=== PATIENT | male | born 1935 | race Caucasian/White ===

== ENCOUNTER 2018-07-02 15:39 | Observation (INO) | payer MEDICARE ==
[2018-07-02] MEDS ORDERED: NS 0.9% 1000 ML* 1,000 ML IV ONE (16:02)
[2018-07-02] MEDS ORDERED: Iodixanol* (CONTRAST) 320 MG/ML 100 ML SDV IV ONE (16:17)
[2018-07-02 16:21] LABS: ABS Basophils 0.1 10^3/ul (0-0.2); ABS Eosinophils 0.1 10^3/ul (0-0.6); ABS Lymphocytes 1.5 10^3/ul (1.0-4.8); ABS Monocytes 0.7 10^3/ul (0-0.8); ABS Neutrophils 4.7 10^3/ul (1.5-7.7); ABS Nucleated RBC 0 10^3/ul; Eosinophil % 1.7 %; Hematocrit 37 % (42-52); Hemoglobin 12.5 g/dl (14.0-18.0); Lymphocyte % 21.5 %; Mean Corpuscular HGB Conc 34 g/dl (31-36); Mean Corpuscular Hemoglobin 32 pg (27-31); Mean Corpuscular Volume 93 fL (80-94); Mean Platelet Volume 7.4 fL (7.4-10.4); Nucleated Red Blood Cells % 0; Platelet Count 168 10^3/ul (150-450); Red Blood Count 3.94 10^6/ul (4.00-5.40); Red Cell Distribution Width 13 % (10.5-15); White Blood Count 7.1 10^3/ul (3.5-10.8)
--- NOTE | 2018-07-02 16:21 | ED ---
Neurological HPI - HPI Summary HPI Summary: Time seen by provider: 15:58. The patient is an 83 y/o M arriving by ambulance to [facility] with a chief complaint of sudden onset difficulty with ambulation and weakness starting today at 12:00. He was getting out of the car to go to a basketball game when he began to feel the weakness with a limping gait. He states that he then sat down in the arena and felt alright, but when he was unable to stand up to leave. He denies LOC, numbness/tingling, dizziness/room spinning, nausea, vomiting, and CP. He is not currently in pain, but in the ED, he is still unable to ambulate normally. He notes that he only ate breakfast this morning. He does not have hx of HTN, strokes, or diabetes. - History of Current Complaint Stated Complaint: NEAR SYNCOPE Time Seen by Provider: 07/02/18 15:47 Hx Obtained From: Patient Onset/Duration: Sudden Onset, Still Present Timing: Sudden Onset Onset Severity: Mild Current Severity: Moderate Seizure Severity: Moderate Neurological Deficit Location: Generalized Pain Intensity: 0 Pain Scale Used: 0-10 Numeric Character: Weak Aggravating: Nothing Alleviating: Nothing Associated Signs and Symptoms: Positive: Unsteady Gait, Weakness. Negative: Loss of Consciousness, Dizziness, Pain, Numbness, Nausea/Vomiting, Chest Pain - Allergy/Home Medications Allergies/Adverse Reactions: Allergies Allergy/AdvReac Type Severity Reaction Status Date / Time No Known Drug Allergies Allergy See Comment Verified 07/02/18 16:58 Home Medications: Home Medications Aspirin EC TAB* [Ecotrin EC Low Dose 81 MG*] 81 mg PO DAILY 07/02/18 [History Confirmed 07/02/18] Cholecalciferol (Vitamin D3) [Vitamin D-3] 4,000 unit PO DAILY 07/02/18 [ History Confirmed 07/02/18] Ferrous Sulfate [Iron High-Potency] 325 mg PO DAILY 07/02/18 [History Confirmed 07/02/18] PMH/Surg Hx/FS Hx/Imm Hx Endocrine/Hematology History: Denies: Hx Diabetes Cardiovascular History: Denies: Hx Hypertension Opthamlomology History: Reports: Hx Contacts or Glasses Denies: Hx Legally Blind EENT History: Denies: Hx Deafness - Surgical History Surgery Procedure, Year, and Place: none Infectious Disease History: No Infectious Disease History: Denies: Traveled Outside the [place] in Last 30 Days - Family History Known Family History: Negative: Diabetes - Social History Occupation: Retired Alcohol Use: Occasionally Hx Substance Use: No Substance Use Type: Reports: None Do You Chew or Dip Tobacco: No Review of Systems Negative: Fever, Chills Negative: Erythema Negative: Sore Throat Negative: Chest Pain Negative: Shortness Of Breath, Cough Negative: Abdominal Pain, Vomiting, Nausea Negative: dysuria, hematuria Negative: Myalgia, Edema Negative: Rash Neurological: Other - POSITIVE: difficulty walking; NEGATIVE: dizziness Negative: Numbness - or tingling All Other Systems Reviewed And Are Negative: Yes Physical Exam - Summary Physical Exam Summary: Constitutional: Well-developed, Well-nourished, Alert. (-) Distressed Skin: Warm, Dry HENT: Normocephalic; Atraumatic Eyes: Conjunctiva normal Neck: Musculoskeletal ROM normal neck. (-) JVD, (-) Stridor, (-) Tracheal deviation Cardio: Rhythm regular, rate normal, Heart sounds normal; Intact distal pulses; The pedal pulses are 2+ and symmetric. Radial pulses are 2+ and symmetric. (-) Murmur Pulmonary/Chest wall: Effort normal. (-) Respiratory distress, (-) Wheezes, (-) Rales Abd: Soft, (-) epigastric tenderness, (-) Distension, (-) Guarding, (-) Rebound Musculoskeletal: (-) Edema Lymph: (-) Cervical adenopathy Neuro: Alert, Oriented x3, Romberg test positive, Finger to nose and dowd to heal negative, GCS: 15 Psych: Mood and affect Normal Triage Information Reviewed: Yes Vital Signs On Initial Exam: Initial Vitals Temp Pulse Resp BP Pulse Ox 99.0 F 84 16 181/88 99 07/02/18 15:59 07/02/18 15:59 07/02/18 15:59 07/02/18 15:59 07/02/18 15:59 Vital Signs Reviewed: Yes - Rupesh Coma Scale Best Eye Response: 4 - Spontaneous Best Motor Response: 6 - Obeys Commands Best Verbal Response: 5 - Oriented Coma Scale Total: 15 Diagnostics - Vital Signs Vital Signs Temp Pulse Resp BP Pulse Ox 07/02/18 15:59 99.0 F 84 16 181/88 99 - Laboratory Result Diagrams: 07/02/18 16:00 07/02/18 16:00 Lab Statement: Any lab studies that have been ordered have been reviewed, and results considered in the medical decision making process. - Radiology CXR Radiology Interpretation Completed By: Radiologist Summary of Radiographic Findings: No radiographic evidence for acute cardiopulmonary abnormality on this. portable chest x-ray. ED physician has reviewed this report. - CT Brain CT CT Interpretation Completed By: Radiologist Summary of CT Findings: 1. No acute intracranial hemorrhage. 2. There is symmetrical enlargement of the bilateral lateral ventricles and third ventricle of unknown chronicity without prior head CTs for comparison. Please correlate to any signs or symptoms of hydrocephalus. ED physician has reviewed this report. Head CTA CT Interpretation Completed By: Radiologist Summary of CT Findings: 1. There is no abrupt filling defect or other acute abnormality of the large named arteries of the neck or head. 2. Mixed attenuation atherosclerosis is seen at the bilateral carotid bulbs causing approximately 57% degree stenosis on the right according to nascet criteria. 3. Nonspecific straightening of the normal cervical lordosis and multilevel degenerative disc disease of the cervical spine. 4. Incidentally noted is round glass density in the bilateral lung apices. ED physician has reviewed this report. NIH Scale - NIH Scale Level of Consciousness: Alert/Keenly Responsive Ask Patient the Month and His/Her Age: Both Correct Ask Pt to Open/Close Eyes and Watch Commander/Release Non-Paretic Hand: Both Correctly Best Gaze (Only Horizontal Eye Movement): Normal Visual Field Testing: No Visual Loss Facial Paresis-Pt to Smile & Close Eyes or Grimace Symmetry: Normal/Symmetrical Motor Function - Right Arm: No Drift-Holds 10 Seconds Motor Function - Left Arm: No Drift-Holds 10 Seconds Motor Function - Right Leg: No Drift-Holds 10 Seconds Motor Function - Left Leg: No Drift-Holds 10 Seconds Limb Ataxia-Must be out of Proportion to Weakness Present: Absent Sensory (Use Pinprick to Test Arms/Legs/Trunk/Face): Normal Best Language (Describe Picture, Name Items): No Aphasia Dysarthria (Read Several Words): Normal Extinction and Inattention: No Abnormality Total Score: 0 Re-Evaluation - Re-Evaluation First Eval Re-Evaluation Time: 19:00 Change: Improved Comment: The patient's ability to bear weight has improved. He is able to support his weight. Course/Dx - Course Course Of Treatment: Time seen by provider: 15:58. The patient is an 83 y/o M arriving by ambulance to [facility] with a chief complaint of sudden onset difficulty with ambulation and weakness starting today at 12:00. He was getting out of the car to go to a basketball game when he began to feel the weakness with a limping gait. He states that he then sat down in the arena and felt alright, but when he was unable to stand up to leave. He denies LOC, numbness/ tingling, dizziness/room spinning, nausea, vomiting, and CP. He is not currently in pain, but in the ED, he is still unable to ambulate normally. He notes that he only ate breakfast this morning. No hx of HTN, strokes, or diabetes. Upon physical exam, the patient has negative finger to nose and dowd to heal, and positive Romberg, GCS: 15, NIH: 0. In the ED course, Coco Melo was called at 16:03. The patient was administered Iodixanol (for CT) and Ns. Blood work and UA are unremarkable. EKG and CXR are negative. Brain CT reveals enlargement of bilateral lateral ventricles. Head CTA reveals atherosclerosis in the bilateral carotid bulbs and degenerative disc disease. I consulted with Dr. Tolentino, neurology, who will come to the ED to visit the patient at 16:00. I consulted with Dr. Cain, who accepts the patient for admission at 18:00. The patient is diagnosed with unsteady gait. He agrees with and understands the need for admission. - Diagnoses Provider Diagnoses: Gait instability During the Visit The Following Alert/Code Occurred: Coco Garner - called at 16:03 - Physician Notifications Discussed Care Of Patient With: Shon Tolentino - neurology Time Discussed With Above Provider: 16:00 Instructed by Provider To: Other - I consulted with Dr. Tolentino, who will come see the patient in the ED. I also consulted Dr. Cain, who accepts the patient for admission at 18:00. Discharge - Sign-Out/Discharge Documenting (check all that apply): Patient Departure - Patient will be admitted to [facility] for further care by Dr. Tolentino. - Discharge Plan Condition: Stable Disposition: ADMITTED TO [facility] Referrals: No Primary Care Phys,NOPCP [Primary Care Provider] - - Billing Disposition and Condition Condition: STABLE Disposition: Admitted to [facility] - Attestation Statements Document Initiated by Aletaibniru: Yes Documenting Scribe: Rebecca Perales Provider For Whom Matty is Documenting (Include Credential): Dr. Frank Lr MD Scribe Attestation: I, Rebecca Perales, scribed for Dr. Frank Lr MD on 07/02/18 at 1901. Scribe Documentation Reviewed: Yes Provider Attestation: The documentation as recorded by the Rebecca rascon accurately reflects the service I personally performed and the decisions made by me, Dr. Frank Lr MD Status of Scribe Document: Viewed
[2018-07-02 16:37] LABS: Albumin 4.1 g/dL (3.2-5.2); Albumin/Globulin Ratio 1.4 (1-3); BUN/Creatinine Ratio 20.4 (8-20); Calcium 9.4 mg/dL (8.6-10.3); EGFR Non-African American 72.9 (>60); Globulin 2.9 g/dL (2-4); HDL Cholesterol 46.2 mg/dL; Magnesium 1.8 mg/dL (1.9-2.7); Potassium 3.3 mmol/L (3.5-5.0); Total Bilirubin 0.6 mg/dL (0.2-1.0)
[2018-07-02 16:39] LABS: Activated Partial Thrombo Time 24.3 seconds (26.0-36.3); INR 0.95 (0.77-1.02)
[2018-07-02 16:59] LABS: TSH (Thyroid Stimulating Horm) 2.76 mcIU/mL (0.34-5.60)
[2018-07-02 17:11] LABS: Urine Appearance Clear; Urine Bilirubin Negative (Negative); Urine Blood Negative (Negative); Urine Color Yellow; Urine Glucose Negative (Negative); Urine Ketones Trace (Negative); Urine Nitrite Negative (Negative); Urine Protein Negative (Negative); Urine Specific Gravity 1.013 (1.010-1.030); Urine Urobilinogen Negative (Negative)
[2018-07-02] MEDS ORDERED: Acetaminophen TAB* 325 MG PO PRN (17:14)
[2018-07-02 17:19] LABS: C Reactive Protein 3.96 mg/L (<8.01)
[2018-07-02 18:04] LABS: Erythrocyte Sed Rate 30 mm/Hr (0-40)
--- NOTE | 2018-07-02 19:38 | HP ---
CC: Dr. Ho* [facility] MEDICINE HISTORY AND PHYSICAL: DATE OF ADMISSION: 07/02/18. PRIMARY CARE PHYSICIAN: Dr. Ho in [place], [place]. ATTENDING PHYSICIAN: Dr. Lita Cain* (dictation provided by Cleo Johnson NP) . CHIEF COMPLAINT: Gait instability. HISTORY OF PRESENT ILLNESS: Mr. Reid is an 83-year-old male with no known past medical history, who presents today to the hospital after developing the sudden onset of gait instability at 11:30 today. Mr. Reid states he was in his normal state of health. He resides in [place], but was here in [place] to attend a [employer] basketball game. The patient was in the gym walking, when he suddenly developed a gait instability. He describes feeling that his legs were unreliable. He denies any dizziness or lightheadedness. He denies any pain in the back or legs. Because of this, he ended up sitting down on the ground and was unable to manage to get up, and therefore EMS was called and he was brought to the emergency room here. He denies any recent illnesses. He has had no fever, chills, chest pain, shortness of breath, nausea, vomiting, diarrhea or abdominal pain. In the emergency room, Mr. Reid had a CT, which showed no acute abnormality of his brain. He also had a head and neck CTA, which showed no acute abnormality. His labs were unremarkable. The patient was seen in consultation by Dr. Tolentino from the neurology team. He notes that the patient had a normal neurological exam except for the fact that when he stood up, he was very unsteady on his feet and leaning into the wall and falling backwards. PAST MEDICAL HISTORY: History of blood clot 30 years ago. MEDICATIONS: The patient states he takes no prescription medications, but does take: 1. Ferrous sulfate 325 mg p.o. daily. 2. Cholecalciferol 4000 units p.o. daily. 3. Aspirin 81 mg p.o. daily. ALLERGIES: No known drug allergies. FAMILY HISTORY: The patient reports his father lived to [facility]. His mother had heart problems and what he describes as angina. SOCIAL HISTORY: No report of alcohol, tobacco or drug use. The patient lives with his in [place] and she will be his healthcare proxy. REVIEW OF SYSTEMS: A 14-point review of systems was completed with Mr. Reid and all those not mentioned above were negative. PHYSICAL EXAMINATION GENERAL: Mr. Reid is sitting up in the bed. He is in no acute distress. VITAL SIGNS: Temperature 99.0, pulse rate 84, respiratory rate 16, O2 saturation 99% on room air, blood pressure 181/88. LUNGS: Clear to auscultation bilaterally with no accessory muscle use and good aeration. HEART: S1, S2. No murmur, rub or gallop and regular. ABDOMEN: Soft, nontender. Bowel sounds positive x4. EXTREMITIES: No cyanosis or edema. SKIN: Intact. NEUROLOGIC: He is alert and oriented x3. He moves all extremities equally. There is no facial asymmetry or focal weakness. Extraocular movements are intact. The patient was ambulated in the ED again by myself. He is demonstrating a short cautious gait, but was not unsteady on his feet. He was able to walk 40 feet in the ED safely with standby assist. He feels that his gait has improved. DIAGNOSTIC STUDIES/LAB DATA: WBC 7.1, hemoglobin 12.5, hematocrit 37, platelet count 168,000. INR 0.95. Sodium 138, potassium 3.3, chloride 104, serum bicarbonate 26, BUN 20, creatinine 0.98, glucose 134 and lactic acid 2.0. Troponin 0.00. Urine is uncollected. The CT brain shows "no acute intracranial hemorrhage. There is symmetrical enlargement of the bilateral ventricles and lateral ventricles, and 3rd ventricle of unknown chronicity without prior head CTs for comparison." The head and neck CTA is as follows: "There is no abrupt filling defect or other acute abnormality of the large main arteries of the neck or head. Mixed attenuation atherosclerosis is seen at the bilateral carotid bulbs causing approximately 57 degrees stenosis in the right according to NASCET criteria. Nonspecific straightening of the normal cervical lordosis and multilevel degenerative disk disease of the cervical spine. Incidentally noted is ground- glass density in the bilateral lung apices." ASSESSMENT AND PLAN: Mr. Reid is an 83-year-old male with no known past medical history other than a pulmonary embolism 30 year ago, who presents today to the hospital with concern for sudden onset of gait instability. Our plans are for observation in the hospital for the followin. Gait instability. Our number one concern is for a cerebrovascular accident at this point or transient ischemic attack. MRIs have been ordered. There is also concern perhaps this is a cervical or a spine-related phenomenon, and therefore, MRIs of the thoracic, lumbar and cervical spine have also been ordered. The patient also has workup including an MONE, CRP, and ESR. Further plan is to continue to reassess through the night, and if this condition worsens , I will be discussing this directly with Dr. Tolentino with intentions for a possible lumbar puncture to rule out transverse myelitis. Again at this point, it appears that his exam is improving spontaneously. 2. DVT prophylaxis with heparin subcu. 3. Code status is full code. TIME SPENT: Approximately 60 minutes were spent on the admission of this patient, more than half of the time was spent with the patient at the bedside reviewing the events leading up to this hospitalization, performing the physical examination, and reviewing my plan of care. CLEO JOHNSON NP [id number]/CPS #: [id number] AARON
[2018-07-02] MEDS: Heparin VIAL(*) 5000 UNITS/ML VIAL (FIVE THOUSAND) SUBCUT SCH (21:55)
--- NOTE | 2018-07-02 22:47 | CONS ---
CONSULTATION REPORT: DATE OF CONSULT: 07/02/18. PATIENT OF: Dr. Lr. HISTORY OF PRESENT ILLNESS: This is an 83-year-old right-handed man, who presents with acute difficulty walking. He and his family note that he is a good walker and goes on hikes. He walked up a hill yesterday and strained a muscle slightly, but his walking was normal after that and it was normal this morning when he went back and forth from [employer]. He also walked normally at 11: 30 when he walked to his son's car to go to a basketball game. The ride to the game was about an hour and when he got out of the car, his walking was not normal, but then he went to the game and when he got out of the game, his walking was clearly abnormal and was worsened from 12:30 when they went into the arena to when the basketball game ended. He, therefore, came to the emergency room at shortly before 4 and I was called a few minutes before 4 and came immediately. First the history was that his gait disturbance just began and we sent him for a CT, CTA because I got the history that it was probably outside of the tPA time window. He has had no bladder problems, bowel problems. No numbness, no weakness, no visual symptoms, and no speech problems. He has had no headaches, no double vision. He has had no prior stroke. PAST MEDICAL HISTORY: He is in otherwise excellent health. PAST SURGICAL HISTORY: No surgeries. MEDICATIONS: He has been taking an aspirin for 35 years now; it is his only medicine. ALLERGIES: No allergies. FAMILY HISTORY: Noncontributory. He has had no recent infections. SOCIAL HISTORY: He does not smoke, drink, or use drugs. PHYSICAL EXAM: Temperature 99, pulse 84, respiratory rate 16, blood pressure 181/88. He is alert and oriented with normal speech and comprehension. Cranial nerves II through XII were intact. There was no double vision. He had full extraocular movements without nystagmus. Discs were sharp bilaterally. He had full visual gaitan. Strength was 5/5. He had no pronator drift. Finger -to-nose was intact. When we stood him, he had a wide gait stance and he leaned against the bed. He could not take steps without assistance and he said that this was new since this afternoon and that this morning, he did not have any unsteadiness and he felt unsteady. Strength in his legs were 5/5. He had 1 + reflexes diffusely with trace to 1 ankle jerks, downgoing toes. He has intact sensation to vibration. Chest: Clear. Cardiovascular: Regular rate and rhythm. Abdomen: Soft with positive bowel sounds. DIAGNOSTIC STUDIES/LAB DATA: His CT scan showed slightly prominent ventricles including the fourth ventricle. There was no acute stroke noted. No acute hemorrhagic stroke or other acute findings. His CTA showed no significant stenosis or other abnormalities. Labs include a normal CBC other than a hematocrit of 37. INR of 0.95, PTT 24.3. CMP was normal other than glucose of 134, magnesium 1.8, LDL of 113. TSH was pending. IMPRESSION: Joni has acute onset without any trauma or other recent problems of acute gait disturbance with unsteadiness of his legs, but his arms look intact. We made sure that he was outside the tPA window if this was a cerebellar stroke and he has no clot in his posterior circulation that would require intervention. We need to clear his spine at this point from an anatomic lesion and he is getting an MRI scan now. We have asked for an MRI scan of his brain as well if that is possible. This may show an acute stroke, but at this point, we would do nothing other than continue the aspirin and know what is happening. The hospitalists are aware and going to look at him now and after the MRI scan. If he has clinically changed and the MRI scan of his spine and brain are normal, they will have the ER do a spinal tap to evaluate for transverse myelitis. Another possibility would be an acute neuropathy such as Guillain-Lubec. The time frame of it being so acute will make it unlikely for it to be Guillain-Lubec. There will be not test at this point to rule this in or out of diagnosis as it takes usually several days for spinal tap or nerve conduction study to be abnormal depending on what the tests show and how he progresses. We may need to come back to consider this and treat for this depending on the clinical evolution of his case. Thank you for sharing his case. [id number]/CPS #: [id number] AARON
[2018-07-02] MEDS ORDERED: Aspirin TAB* 325 MG PO ONE (23:40)
[2018-07-03] MEDS: Heparin VIAL(*) 5000 UNITS/ML VIAL (FIVE THOUSAND) SUBCUT SCH ×2 (05:07→13:02)
[2018-07-03] MEDS ORDERED: Aspirin EC TAB* 81 MG TAB.EC PO SCH (09:00)
[2018-07-03] MEDS ORDERED: Ferrous Sulfate TAB* 325 MG PO SCH (09:00)
[2018-07-03 15:41] VITALS: BP 127/68
--- NOTE | 2018-07-03 16:05 | PN ---
Subjective Date of Service: 07/03/18 Interval History: Feeling much better today, walking for 20 minutes. No pain or weakness in either leg. He developed cramping pain in left lateral calf during his hike(he is unclear if walking up hill or downhill when it developed). He had small breakfast and coffee then during taoism service day of admission a small water, drove from [place] to [place]. At [employer] game, felt like he would have trouble standing, used the handrail to support himself down the stairs and then was provided a chair at the bottom. He was noticed to be flush in the face, denied any world spinning or dizziness. No arrythmia on tele. normotensive. Uses alos red rice yest for HLD. Objective Active Medications: Acetaminophen (Tylenol Tab*) 650 mg PO Q6H PRN PRN Reason: PAIN Aspirin (Aspirin Ec Tab*) 81 mg PO DAILY [facility] Last Admin: 07/03/18 08:49 Dose: 81 mg Ferrous Sulfate (Ferrous Sulfate Tab*) 325 mg PO DAILY [facility] Last Admin: 07/03/18 08:49 Dose: 325 mg Heparin Sodium (Porcine) (Heparin Vial(*)) 5,000 units SUBCUT Q8HR [facility] Last Admin: 07/03/18 13:02 Dose: 5,000 units Vital Signs - 8 hr 07/03/18 15:33 Temperature 97.8 F Pulse Rate 63 Respiratory 16 Rate Blood Pressure 127/68 (mmHg) O2 Sat by Pulse 96 Oximetry Oxygen Devices in Use Now: None Appearance: NAD, sitting in chair. Ears/Nose/Mouth/Throat: NL Teeth, Lips, Gums Neck: NL Appearance and Movements; NL JVP Respiratory: Symmetrical Chest Expansion and Respiratory Effort, Clear to Auscultation Cardiovascular: NL Sounds; No Murmurs; No JVD, RRR Abdominal: NL Sounds; No Tenderness; No Distention, No Hepatosplenomegaly Extremities: No Edema, No Clubbing, Cyanosis Skin: No Rash or Ulcers, No Nodules or Sclerosis Neurological: Alert and Oriented x 3, - - 5/5 strength in bicep, tricep, hip flexion, Result Diagrams: 07/02/18 16:00 07/02/18 16:00 Assess/Plan/Problems-Billing Assessment:
--- NOTE | 2018-07-04 08:55 | DS ---
DISCHARGE SUMMARY: DATE OF ADMISSION: 07/02/18 DATE OF DISCHARGE: 07/03/18 ADMITTING PROVIDER: Cloe Johnson NP PRIMARY CARE PHYSICIAN: Dr. Beti Ho, [place], [place]. CHIEF COMPLAINT: Gait instability. PRINCIPAL DIAGNOSES: 1. 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 2. Degenerative disc disease with multilevel neuroforaminal narrowing, worst at L3-L4 with severe left and moderate right neuroforaminal narrowing. HISTORY OF PRESENT ILLNESS/HOSPITAL COURSE: Joni Reid is an 83-year-old male with past medical history of hyperlipidemia, iron deficiency anemia, vitamin D deficiency, who, a day prior to presentation, was on a hike when he developed a left lateral calf pain. Morning of admission, he had small breakfast. Went to [employer] services, had a small water, then drove an hour from [facility] to [place] to attend [employer] basketball game. He felt sensation that he would be unsteady on his feet before even attempting. He slid himself lightly down the aisle. He stood up, used the railing to support himself going down the stairs and was noted to be flushed, a flushed face, but denied any dizziness or world spinning at this time. EMS was called. Their notes mentioned that he felt like he was going to pass out and "got really dizzy," but he denies this on the day of discharge. His blood pressure at that time was 146/94, heart rate 70, [place] [facility] [place] and had a CT head non -contrast, which showed no acute intracranial hemorrhage, but with symmetrical enlargement of the bilateral lateral ventricles and third ventricle of unknown chronicity without prior head CTs for comparison. Please correlate with signs or symptoms of hydrocephalus. Chest x-ray showed no acute cardiopulmonary abnormality. He had a CTA of the head and neck, which showed no abrupt filling defect or other acute abnormality of the large main arteries of the head or neck. There was mixed attenuation atherosclerosis seen at the bilateral carotid bulbs causing approximately 57-degree stenosis on the right according to NASCET criteria. There was nonspecific straining of the normal cervical lordosis and multilevel degenerative disc disease of the cervical spine and an incidental note of a ground glass density in the bilateral lung apices. Initial labs were significant for a hemoglobin of 12.5, potassium 3.3, magnesium 1.8, glucose 134, trace ketones in his urine. Dr. Tolentino, Neurology , was consulted and upon examination, he felt him to be markedly unsteady, leaning back against the bed. He was noted to have a wide-based gait and mentioned that this was his baseline on day of discharge. It was thought to rule out spinal pathology, so MRI of his cervical, thoracic and lumbar spines were obtained without contrast. The impression bein. Scoliosis. 2. Degenerative disc disease and osteoarthritis. 3. There is mild narrowing of the central canal at C3-C4, C5-C6, and L3-L4. 4. There is multilevel neuroforaminal narrowing as described above. Most notably, at L3-L4, there was severe left and moderate right neuroforaminal narrowing with mild narrowing of the central canal. At C7-T1, there was 0.3 cm central disc protrusion versus posterior osteophyte. There is moderate right neuroforaminal narrowing, no significant central canal stenosis. At C3-C4, there was severe left and moderate right neuroforaminal narrowing, mild narrowing of the central canal; at C4-C5, there is moderate bilateral neuroforaminal narrowing; at C5-C6, there is a moderate bilateral neuroforaminal narrowing and mild narrowing of the central canal. 5. There was prominence of the epidural veins along the thoracic spine without enlargement of the spinal veins. This finding can be seen in association with spinal epidural arteriovenous fistula. If clinically indicated, consider further evaluation with catheter-based digital subtraction spinal angiography. He obtained a brain MRI without contrast, showing impression: 1. There are multiple foci of elevated T2 FLAIR signal within the periventricular and subcortical white matter. While these findings are nonspecific, they can be seen in association with migraine headaches, as a sequelae of previous infection or inflammation, and chronic small vessel ischemia. Demyelinating disease is also within the differential. 2. No restricted diffusion to suggest acute infarct. On hospital day #2, he felt improved, in fact started to feel improved the night prior. He walked for 20 minutes and felt completely at his baseline without return of his gait unsteadiness or weakness or lightheadedness. There were no events on telemetry and his blood pressure was normotensive. Dr. Tolentino evaluated him again and based upon the MRI findings, recommended consideration for the digital subtraction spinal angiography with concern for possible AV fistula causing vascular insufficiency given the acute nature of the attack. This is not performed at this institution and recommendation to send all imaging up to [facility] via PACs was recommended and performed with additional consideration of Dr. Tolentino to discuss with neurosurgeon at [facility] within the coming days for further guidance whether or not this study would be recommended. Additional etiologies that could be contributing to his presentation or at least cofounding considerations might be his dehydration and potential for BPH given his wide- based stance, though he has no confusion or urinary incontinence. An A1c has been added on given his glucose levels between 129 and 134. He had an LDL of 113, HDL 46, triglycerides of 212, TSH of 2.76. An MONE is pending. DISCHARGE MEDICATIONS: Include: 1. Aspirin 81 mg daily. 2. Ferrous sulfate 325 mg p.o. daily. 3. Cholecalciferol 4000 units p.o. daily. 4. He also takes red rice yeast for hyperlipidemia. FOLLOWUP: Please follow up with Dr. Beti Ho, his PCP within 7 days of discharge. As mentioned, Dr. Tolentino will be discussing the case with [facility] neurosurgeons after thorough evaluation of the images to see if he is recommended to get a digital subtraction spinal angiography to rule out epidural arteriovenous fistula. TIME SPENT: Time spent on this discharge 45 minutes. [id number]/[facility] #: [id number] AARON
--- NOTE | 2018-07-05 03:51 | PN ---
NEUROLOGICAL FOLLOWUP NOTE: DATE OF VISIT: 07/03/18 PATIENT OF: Sher Tavera M.D. HISTORY: This is a neurological followup on this 83-year-old man, who had acute gait disturbance yesterday. He feels back to his baseline today without any residual symptoms and even last night he was getting better. MEDICATIONS: His medications remain unchanged and are just aspirin, it was started on a daily basis. REVIEW OF SYSTEMS: Negative. PHYSICAL EXAMINATION: Temperature 97.8, pulse 63, respirations 16, blood pressure 127/68. He is alert and oriented with normal speech and comprehension. Cranial nerves II through XII were intact. Motor exam revealed normal tone and strength. He has a slightly wide-based gait, but this is what is his normal gait. His Romberg was negative. Reflexes are unchanged. Chest: Clear. Cardiovascular: Regular rate and rhythm. Abdomen: Soft with positive bowel sounds. DIAGNOSTIC STUDIES/LAB DATA: His sed rate is 30. LDL was 113. Triglycerides were 212. I reviewed his MRI scan of his brain, which showed some small vessel ischemic disease and his MRI scan of his cervical and lumbar spine, which showed some multilevel neuroforaminal stenosis, but also prominence of the epidural veins, which had enlargement of his spinal veins, which per Dr. Vera raised the issue of spinal epidural arteriovenous fistula and he raised the possibility in his report of a digital subtraction spinal angiography. ASSESSMENT AND PLAN: I spoke to Dr. Vera who thought that the exact findings were unlikely to indicate a spinal epidural arteriovenous fistula and that the symptoms were not likely to be secondary to a fistula. I discussed with both the patient, Dr. Vera and Dr. Tavera that his symptoms were of bilateral leg dysfunction, which suggests most likely a spinal cord problem which has now resolved and he just has his baseline mild deficit. I will therefore pursue Dr. Vera's findings on MRI scan with his neurovascular surgeon later this week. I am having the films sent to [place] and then will be speaking to the neurosurgeon to see if they would want to pursue with digital spinal angiography depending on what they find on the their interpretation of x-ray and story. This digital spinal angiography is not done locally here and Dr. Vera thinks it may not even be necessary. Therefore, we will be sending him home with close followup with the neurosurgeon. Thank you for sharing his case. [id number]/[facility] #: [id number] AARON
== END 2018-07-03 17:47 | disposition home or self-care (01) ==
LOC: EDBD → ED 15:39 → MEDTELE 17:12
PROVIDERS: ADMIT Internal Medicine; ATTEND Internal Medicine
DX: R26.89 Other abnormalities of gait and mobility (principal); M51.36 Other intervertebral disc degeneration, lumbar region; E78.5 Hyperlipidemia, unspecified; D50.9 Iron deficiency anemia, unspecified; E55.9 Vitamin D deficiency, unspecified; Z79.82 Long term (current) use of aspirin; M41.9 Scoliosis, unspecified; M50.322 Other cervical disc degeneration at C5-C6 level
CPT/HCPCS: 36415; 70450; 70496; 70498; 70551; 71045; 72141; 72146; 72148; 80053; 80061; 81003; 83036; 83605; 83735; 84443; 84484; 85025; 85610; 85652; 85730; 86038; 86140; 86850; 86900; 86901; 93005; 96372; 99285; A9270-GY; G0378; J1644; Q9967